=== PATIENT | male | born 1985 | race American Indian/Alaskan Native ===

== ENCOUNTER 2016-11-21 15:25 | Emergency (ER) | payer BC ==
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
[2016-11-21 21:37] VITALS: BP 132/78
== END 2016-11-21 21:42 | disposition home or self-care (01) ==
LOC: ED 15:25
DX: J34.1 Cyst and mucocele of nose and nasal sinus (principal); F17.200 Nicotine dependence, unspecified, uncomplicated; Z04.1 Encounter for examination and observation following transport accident; V89.2XXD Person injured in unspecified motor-vehicle accident, traffic, subsequent encounter
CPT/HCPCS: 70450